=== PATIENT | female | born 1945 | race Asian ===

== ENCOUNTER 2019-03-06 08:40 | Outpatient (CLI) | payer OTHER, MEDICARE ==
[~2019-03-06 08:40] MED LIST: AMLO2.5T2 PO; HYDR12.5 PO; SPIR25TA PO
== END 2019-03-06 21:01 | disposition home or self-care (01) ==
LOC: SMA 08:40
DX: Z12.31 Encounter for screening mammogram for malignant neoplasm of breast (principal)
CPT/HCPCS: 77067

== ENCOUNTER 2020-06-24 09:29 | Outpatient (CLI) | payer OTHER, MEDICARE | END 2020-06-24 20:00 | disposition home or self-care (01) | LOC: SMA 09:29 | DX: Z12.31 Encounter for screening mammogram for malignant neoplasm of breast (principal); E55.9 Vitamin D deficiency, unspecified; E78.5 Hyperlipidemia, unspecified; I10 Essential (primary) hypertension; M81.0 Age-related osteoporosis without current pathological fracture; G47.00 Insomnia, unspecified; D35.2 Benign neoplasm of pituitary gland; G62.9 Polyneuropathy, unspecified | CPT/HCPCS: 77067 ==

== ENCOUNTER 2021-06-25 09:01 | Outpatient (CLI) | payer OTHER, MEDICARE | END 2021-06-25 20:55 | disposition home or self-care (01) | LOC: SMA 09:01 | PROVIDERS: ATTEND Internal Medicine | DX: Z12.31 Encounter for screening mammogram for malignant neoplasm of breast (principal) | CPT/HCPCS: 77067 ==

== ENCOUNTER 2022-09-09 09:17 | Outpatient (CLI) | payer OTHER, MEDICARE | END 2022-09-09 19:41 | disposition home or self-care (01) | LOC: SMA 09:17 | PROVIDERS: ATTEND Internal Medicine | DX: Z12.31 Encounter for screening mammogram for malignant neoplasm of breast (principal) | CPT/HCPCS: 77067 ==